=== PATIENT | female | born 1995 | race African-American/Black ===

== ENCOUNTER 2017-02-01 19:33 | Emergency (ER) | payer MEDICAID | END 2017-02-01 23:30 | disposition left against medical advice (07) | LOC: ER 23:26 | DX: R51 Headache (principal); Z53.21 Procedure and treatment not carried out due to patient leaving prior to being seen by health care provider ==

== ENCOUNTER 2017-09-23 07:37 | Emergency (ER) | payer MEDICAID ==
[~2017-09-23] VITALS: Ht 162.6 cm; Wt 73.0 kg
[2017-09-23] MEDS ORDERED: SODIUM CHLORIDE 0.9% 1,000 ML IV SCH (08:40)
[2017-09-23] MEDS ORDERED: EPINEPHRINE 1:1000 1 MG/ML AMP IM ONE (08:45)
[2017-09-23] MEDS ORDERED: DIPHENHYDRAMINE 50MG/ML VIAL IV ONE (08:45)
[2017-09-23] MEDS ORDERED: ALBUTEROL (0.083%) 2.5MG/3ML NEB HHN ONE (08:45)
[2017-09-23] MEDS ORDERED: FAMOTIDINE 20MG/2ML VIAL IV ONE (08:45)
[2017-09-23] MEDS ORDERED: ONDANSETRON HCL 4MG/2ML VIAL IV ONE (08:45)
[2017-09-23] MEDS ORDERED: METHYLPREDNISOLONE SOD SUCC 125 MG/2 ML VIAL IV ONE (08:45)
[2017-09-23 09:56] LABS: HEMATOCRIT. 26.5 % (36.0-48.0); HEMOGLOBIN. 7.9 g/dL (12.0-16.0); MEAN CORPUSCULAR HEMOGLOBIN 18.7 pg (28.0-32.0); MEAN CORPUSCULAR VOLUME 62.9 fL (81.0-99.0); MEAN PLATELET VOLUME 6.9 fl (7.4-10.4); PLATELET 350 x1000/uL (130-400); RED BLOOD CELL COUNT 4.21 mill/uL (4.2-5.4); RED CELL DISTRIBUTION WIDTH 19.6 % (11.6-14.6)
[2017-09-23 09:59] LABS: CHLORIDE 109 mEq/L (98-107)
[2017-09-23 10:28] LABS: HCG SCREEN NEGATIVE
[2017-09-23 11:48] LABS: PLATELET ESTIMATE NORMAL
[2017-09-23 14:01] VITALS: BP 111/69
== END 2017-09-23 14:40 | disposition home or self-care (01) ==
LOC: ER 08:11
DX: L50.0 Allergic urticaria (principal); D50.9 Iron deficiency anemia, unspecified
CPT/HCPCS: 36415; 80053; 84703; 85025; 94640; 96361; 96372; 96374; 96375; 99284; J1200; J2405; J2930; J3490; J7611; Z7610

== ENCOUNTER 2017-11-29 20:49 | Emergency (ER) | payer MEDICAID ==
[~2017-11-29] VITALS: Ht 172.7 cm; Wt 83.0 kg
[2017-11-30] MEDS ORDERED: KETOROLAC 30MG/ML VIAL IV STA (02:11)
[2017-11-30] MEDS ORDERED: METOCLOPRAMIDE HCL 10MG/2ML VIAL IV STA (02:11)
[2017-11-30] MEDS ORDERED: SODIUM CHLORIDE 0.9% 1,000 ML IV ONE (02:11)
[2017-11-30] MEDS ORDERED: FAMOTIDINE 20MG/2ML VIAL IV STA (02:11)
[2017-11-30 02:45] LABS: CLARITY URINE CLOUDY (CLEAR); COLOR URINE YELLOW (YELLOW); KETONES URINE NEGATIVE (NEGATIVE); LEUKOCYTE ESTERASE URINE 3+ (NEGATIVE); NITRITE URINE NEGATIVE (NEGATIVE); OCCULT BLOOD URINE NEGATIVE (NEGATIVE); PH URINE 7.5 (4.5-8.0); PROTEIN URINE NEGATIVE (NEGATIVE); SPECIFIC GRAVITY URINE 1.017 (1.005-1.030)
[2017-11-30 03:30] VITALS: BP 115/70
[2017-11-30 04:46] LABS: BASOPHILS % 0.6 % (0.0-2.0); EOSINOPHILS % 1.6 % (0.0-5.0); HEMATOCRIT. 27.3 % (36.0-48.0); HEMOGLOBIN. 8.2 g/dL (12.0-16.0); LYMPHOCYTES % 30.1 % (20.0-50.0); MEAN CORPUSCULAR HEMOGLOBIN 19.2 pg (28.0-32.0); MEAN CORPUSCULAR VOLUME 63.9 fL (81.0-99.0); MEAN PLATELET VOLUME 7.1 fl (7.4-10.4); MONOCYTES % 6.2 % (2.0-8.0); NEUTROPHILS % 61.5 % (40.0-76.0); PLATELET 497 x1000/uL (130-400); RED BLOOD CELL COUNT 4.27 mill/uL (4.2-5.4); RED CELL DISTRIBUTION WIDTH 20.2 % (11.6-14.6)
[2017-11-30 04:54] LABS: CHLORIDE 106 mEq/L (98-107)
[2017-11-30 05:02] LABS: PROTHROMBIN TIME 10.7 sec (9.4-11.6)
[2017-11-30 05:19] LABS: B-HCG QUANTITATIVE 92121 mIU/mL (<3)
== END 2017-11-30 06:25 | disposition home or self-care (01) ==
LOC: ER 21:08
DX: O98.82 Other maternal infectious and parasitic diseases complicating childbirth (principal); O21.9 Vomiting of pregnancy, unspecified; B37.3 Candidiasis of vulva and vagina; R10.9 Unspecified abdominal pain; Z3A.11 11 weeks gestation of pregnancy
CPT/HCPCS: 36415; 76700; 76801; 80053; 81003; 81025; 83690; 84702; 85025; 85610; 86850; 86900; 86901; 96361; 96374; 96375; 99285; J1885; J2765; J3490; J7030

== ENCOUNTER 2020-12-31 16:37 | Emergency (ER) | payer MEDICAID ==
[~2020-12-31] VITALS: Ht 172.7 cm; Wt 80.0 kg
[2020-12-31] MEDS ORDERED: MAGNESIUM/ALUMINUM HYDROXIDE/SIMETHICONE 30ML UDC PO STA (17:40)
[2020-12-31] MEDS ORDERED: KETOROLAC 60MG/2ML VIAL IM ONE (17:45)
[2020-12-31] MEDS ORDERED: PENI500T MT (19:04)
[2020-12-31] MEDS ORDERED: IBUP-2029 MT (19:09)
[2020-12-31 19:38] VITALS: BP 94/61
== END 2020-12-31 19:38 | disposition home or self-care (01) ==
LOC: ER 16:37
DX: J02.8 Acute pharyngitis due to other specified organisms (principal); M79.18 Myalgia, other site; B96.89 Other specified bacterial agents as the cause of diseases classified elsewhere; R10.13 Epigastric pain; Z86.2 Personal history of diseases of the blood and blood-forming organs and certain disorders involving the immune mechanism
CPT/HCPCS: 74018; 81025; 96372; 99283; J1885

== ENCOUNTER 2021-02-06 18:56 | Emergency (ER) | payer MEDICAID ==
[~2021-02-06] VITALS: Ht 175.3 cm; Wt 78.0 kg
[~2021-02-06 18:56] MED LIST: IBUP-2029 MT; PENI500T MT
[2021-02-06] MEDS ORDERED: IBUP-2028 MT (19:39)
[2021-02-06] MEDS ORDERED: AMOX-424 MT (19:40)
[2021-02-06] MEDS ORDERED: IBUPROFEN 600MG TABLET PO ONE (19:45)
[2021-02-06 19:54] VITALS: BP 134/79
== END 2021-02-06 20:22 | disposition home or self-care (01) ==
LOC: ER 18:56
DX: L04.0 Acute lymphadenitis of face, head and neck (principal); J02.9 Acute pharyngitis, unspecified; K08.89 Other specified disorders of teeth and supporting structures; D64.9 Anemia, unspecified; Z79.899 Other long term (current) drug therapy
CPT/HCPCS: 87070; 87430; 99283

== ENCOUNTER 2024-07-19 17:35 | Emergency (ER) | payer MEDICAID ==
[~2024-07-19] VITALS: Ht 170.2 cm; Wt 77.0 kg
[~2024-07-19 17:35] MED LIST changes: +AMOX-424 MT; +IBUP-2028 MT
[2024-07-19 17:38] VITALS: BP 139/74; PULSE 115; RESP 16; TEMP 38.1; O2SAT 98
[2024-07-19 20:01] VITALS: TEMP 100.5
[2024-07-19] MEDS: ACETAMINOPHEN 500MG TABLET PO NR (20:01)
[2024-07-19] MEDS ORDERED: ACET-2708 MT (20:40)
[2024-07-19] MEDS ORDERED: AM250 MT (20:40)
[2024-07-19 21:18] LABS: INFLUENZA TYPE A Presumptive Negative (Pres. Neg.)
[2024-07-19 21:19] LABS: INFLUENZA TYPE B Presumptive Negative (Pres. Neg.)
== END 2024-07-19 21:24 | disposition home or self-care (01) ==
LOC: ER 17:35
DX: R05.9 Cough, unspecified (principal); D64.9 Anemia, unspecified; Z20.822 Contact with and (suspected) exposure to COVID-19
CPT/HCPCS: 71045; 87426; 87804; 99284